=== PATIENT | male | born 1965 | race Caucasian/White ===

== ENCOUNTER 2020-01-20 18:36 | Emergency (ER) | payer OTHER, SELFPAY ==
--- NOTE | 2020-01-20 | US_ITS ---
EXAMINATION: US SCROTUM CLINICAL INFORMATION: Right-sided testicular pain. COMPARISON: None TECHNIQUE: A sonogram of the scrotum was performed assessing davidson-scale appearance and color Doppler flow. Spectral Doppler analysis of the arterial and venous flow were performed in the testes bilaterally. FINDINGS: RIGHT: Right testicle measures 4.7 x 2.8 x 3.2 cm, volume 22.1 mL. No focal testicular parenchymal lesions are visualized. Spectral Doppler analysis of the arterial and venous flow is normal in the right testis. Right epididymal head is normal in size. Small cyst in the head of the epididymis. Small right-sided hydrocele. There is no varicocele.. Right epididymal Doppler flow is normal. LEFT: Left testicle measures 4.7 x 2.5 x 2.9 cm, volume 17.4 mL. No focal testicular parenchymal lesions are visualized. Spectral Doppler analysis of the arterial and venous flow is normal in the left testis. Left epididymal head is normal in size. Small cyst in the head of the epididymis. No left hydrocele or varicocele is seen. Left epididymal Doppler flow is normal. IMPRESSION: 1. Normal right and left testicle and epididymis. Incidental small cysts in the head of both epididymis. 2. Small bilateral hydrocele.
[2020-01-20 18:50] VITALS: BP 157/65; PULSE 63; RESP 18; TEMP 37.1; BMI 50.9
--- NOTE | 2020-01-20 19:00 | ED.MALEGU ---
HPI - Male Genitourinary General Chief complaint: Urogenital-Male Stated complaint: RIGHT TESTICULAR PAIN Time Seen by Provider: 01/20/20 18:55 Source: patient Mode of arrival: ambulatory History of Present Illness HPI Narrative: patient states for the past couple days been having right testicular pain. Patient got worse and could not tolerate and came into the ER. Denies fevers or chills. Denies back pain. Denies penile discharge. Denies any trauma denies abdominal pain. patient states went to [facility] and was sent here for evaluation Complaint: testicle pain ( right sided) Duration: constant Location: right testicle Severity: moderate Severity scale (1-10): 4 Quality: aching Related Data Previous Rx's Medication Instructions Recorded tramadol [Ultram] 50 mg PO BID PRN #10 tab 01/20/20 Allergies Allergy/AdvReac Type Severity Reaction Status Date / Time clarithromycin [From Biaxin] AdvReac Itching Verified 01/20/20 19:00 Review of Systems Review of Systems: Constitutional : No Weight loss, No Fever, No Chills, No Night Sweats, No Fatigue, No Malaise ENT/Mouth : No Hearing loss, No Ear Pain, No Nasal Congestion, No Sinus Pain, No Hoarseness, No sore throat, No Rhinorrhea, No Swallowing Difficulty Eyes: No Eye Pain, No Swelling, No Redness, No Foreign Body, No Discharge, No Vision Changes Cardiovascular : No Chest Pain, No SOB, No Dyspnea on Exertion, No Orthopnea, No Edema, No Palpitations Respiratory : No Cough, No Sputum, No Wheezing, No Smoke Exposure, No Dyspnea Gastrointestinal : No Nausea, No Vomiting, No Diarrhea, No Constipation, No abdominal Pain, No Hematochezia, No Melena Genitourinary : no irregular bleeding, No Dysuria, No Urinary Frequency, No Hematuria, right testicular pain No Urinary Incontinence, No Urgency, No Flank Pain, No Urinary Flow Changes, No Hesitancy Musculoskeletal : No joint pain, No Myalgias, No Joint Swelling Skin : No Skin Lesions, No rash Neuro : No Weakness, No Numbness, No Paresthesias, No Loss of Consciousness, No Dizziness, No Headache Psych : No Anxiety/Panic, No Depression, No SI/HI/AH/VH, No Social Issues, Heme/Lymph: No Bruising, No Bleeding,No Lymphadenopathy Endocrine : No Polyuria, No Polydipsia, No Temperature Intolerance [facility] Past Medical History Medical History Diabetes HTN (hypertension) Sleep apnea Umbilical hernia Social History Social History (Updated 01/20/20 @ 19:02 by Cong Meyer DO) Household Members: Family Alcohol intake: never Smoked in Last 30 Days: No Use of substances other than those prescribed or required for medical reasons: No Advance Directives: No Advance Directives Information Provided: Yes Physical Exam Vital Signs and I&O and Narrative: Vital Signs and I&O: Vital Signs Temp 98 F 01/20/20 20:41 Pulse 65 01/20/20 20:41 Resp 15 01/20/20 20:41 BP 158/68 H 01/20/20 20:41 Intake & Output 01/20/20 01/20/20 01/21/20 06:59 18:59 06:59 Weight 156.489 kg Body Mass Index 50.9 vital signs reviewed Const: Other: Appearance: Alert. Oriented X3. No acute distress. Eyes: Pupils equal, round and reactive to light. ENT: Pharynx normal. Neck: Normal inspection. Neck supple. CVS: Normal heart rate and rhythm. Pulses normal. Respiratory: No respiratory distress. Breath sounds normal. Abdomen: Soft and nontender. genital: right testicular tenderness with mild swelling. no erythema. No abscess no lacerations. No penile discharge Skin: Skin warm and dry. Normal skin color. Normal skin turgor. Extremities: No lower extremity edema. No lower extremity edema. Neuro: Oriented X 3. No motor deficit. No sensory deficit. Course Reevaluation(s) Reevaluation #1: 54-year-old male with right scrotal pain. Ultrasound negative for epididymitis or orchitis. Negative urine. Does show a scrotal cyst. I discussed with patient reasons return to the emergency department pain medication and follow-up with urology. I doubt this patient has sepsis at this point MDM - Male Genitourinary MDM Narrative Medical decision making narrative: differential diagnosis includes epididymitis , orchitis Differential Diagnosis Differential diagnosis: Likely urinary tract infection Lab Data Result diagrams: 01/20/20 19:19 01/20/20 19:19 Labs: Lab Results 01/20/20 01/20/20 01/20/20 Range/Units 19:09 19:19 19:19 WBC 9.7 (4.8-10.8) X10*3/uL RBC 4.72 (4.60-5.80) X10*6/uL Hgb 14.8 (14.0-18.0) g/dl Hct 43.3 (42-52) % MCV 91.7 (80-98) fL MCH 31.4 (27.0-33.0) pg MCHC 34.2 (31.0-36.0) g/dl RDW 13.1 (11.0-16.0) % Plt Count 308 (160-400) X10*3/uL MPV 9.5 (9.4-12.4) fL Immature Gran % (Auto) 1.0 H (0.0-0.4) % Neut % (Auto) 63.7 (45-73) % Lymph % (Auto) 25.9 (20-40) % [place] % (Auto) 6.3 (2-11) % Eos % (Auto) 2.5 (0-4) % Baso % (Auto) 0.6 (0-2) % Neut # (Auto) 6.2 (2.0-8.3) X10*3/uL Lymph # (Auto) 2.5 (1.2-4.9) X10*3/uL [place] # (Auto) 0.6 (0.1-1.2) X10*3/uL Eos # (Auto) 0.2 (0.0-0.4) X10*3/uL Baso # (Auto) 0.1 (0.0-0.2) X10*3/uL Abs Immat Gran (auto) 0.10 H (0.00-0.03) X10*3/uL Absolute Nucleated RBC 0.000 (0.0-0.012) X10*3/uL Nucleated RBC % (auto) 0.0 (0.0-0.2) /100WBC Sodium 137 (135-145) mmol/L Potassium 3.9 (3.3-5.1) mmol/l Chloride 98 (96-108) mmol/L Carbon Dioxide 30 H (22-29) mmol/L Anion Gap 13 (12-20) BUN 12 (9-16) mg/dL Creatinine 0.83 (0.5-1.4) mg/dL Estim Creat Clear Calc 147.6 Estimated GFR > 60 Random Glucose 110 (60-115) mg/dL Calcium 9.3 (8.4-10.2) mg/dL Urine Color YELLOW Urine Appearance CLEAR Urine pH 5.5 (5.0-8.0) Ur Specific [place] 1.020 (1.005-1.025) Urine Protein NEG (NEG-TRACE) MG/DL Urine Glucose (UA) NEG (NEG) MG/DL Urine Ketones NEG (NEG) MG/DL Urine Blood NEG (NEG) Urine Nitrite NEG (NEG) Ur Leukocyte Esterase NEG (NEG) Discharge Plan Discharge Clinical Impression: Cyst of scrotum Patient Disposition: Home, Self-Care Instructions: Cyst (ED), Scrotal Pain (ED) Additional Instructions: Thank you for visiting the emergency department today. If your symptoms worsen or do not resolve completely please return to the emergency department immediately or call 911. if he have any questions please call your primary care physician Prescriptions: New tramadol [Ultram] 50 mg tablet 50 mg PO BID PRN (Reason: pain) Qty: 10 RF: 0 Referrals: Han Ayers MD [Physician] - 2 days Interventions: ED Discharge Assessment Last Done: 01/20/20 22:59 Discharge Date/Time: 01/20/20 22:59
[2020-01-20 19:20] LABS: Glucose Urine UA NEG (NEG); Leukocyte Esterase Urine NEG (NEG); Nitrite Urine NEG (NEG); PH 5.5 (5.0-8.0); Urine Blood NEG (NEG); Urine Ketones NEG (NEG); Urine Protein NEG (NEG-TRACE)
[2020-01-20 19:23] LABS: Appearance Urine CLEAR; Color Urine YELLOW
--- NOTE | 2020-01-20 19:25 | PC.NURSE ---
PT UPRIGHT IN BED, RR EVEN UNLABORED, SKIN WPD, AOX3. PT C/O R TESTICULAR PAIN WHICH STARTED ~2 WEEKS AGO BUT GOT SIGNIFICANTLY WORSE THIS AM WAKING PT FROM SLEEP. PT DENIES INJURY. NO APPRECIABLE REDNESS/SWELLING UPON VISUALIZATION. PT DENIES URINARY SX. LABS SENT, PT AWAITING RESULTS AND U/S.
[2020-01-20 19:27] LABS: MANUAL DIFF FLAG NO
[2020-01-20 19:39] LABS: Basophils Absolute Auto 0.1 X10*3/uL (0.0-0.2); Basophils Percent Auto 0.6 % (0-2); Eosinophils Absolute Auto 0.2 X10*3/uL (0.0-0.4); Eosinophils Percent Auto 2.5 % (0-4); Hematocrit 43.3 % (42-52); Hemoglobin 14.8 g/dl (14.0-18.0); Lymphocytes Absolute Auto 2.5 X10*3/uL (1.2-4.9); Lymphocytes Percent Auto 25.9 % (20-40); Mean Corpuscular HGB Conc 34.2 g/dl (31.0-36.0); Mean Corpuscular Hemoglobin 31.4 pg (27.0-33.0); Mean Corpuscular Volume 91.7 fL (80-98); Mean Platelet Volume 9.5 fL (9.4-12.4); Monocytes Absolute Auto 0.6 X10*3/uL (0.1-1.2); Monocytes Percent Auto 6.3 % (2-11); Neutrophils Absolute Auto 6.2 X10*3/uL (2.0-8.3); Neutrophils Percent Auto 63.7 % (45-73); Platelet Count 308 X10*3/uL (160-400); Red Blood Count 4.72 X10*6/uL (4.60-5.80); Red Cell Distribution Width 13.1 % (11.0-16.0); White Blood Count 9.7 X10*3/uL (4.8-10.8)
[2020-01-20 19:50] LABS: Anion Gap 13 (12-20); Blood Urea Nitrogen 12 mg/dL (9-16); Calcium 9.3 mg/dL (8.4-10.2); Carbon Dioxide 30 mmol/L (22-29); Chloride 98 mmol/L (96-108); Creatinine Clr Calc Pharmacy 147.6; Estimated Glomerular Filt Rate > 60; Glucose Random 110 mg/dL (60-115); Potassium 3.9 mmol/l (3.3-5.1); Sodium 137 mmol/L (135-145)
[2020-01-20 20:41] VITALS: BP 158/68; PULSE 65; RESP 15; TEMP 36.6
--- NOTE | 2020-01-20 20:43 | PC.NURSE ---
PT BACK FROM U/S, OFFERS NO NEW COMPLAINTS, AWAITING U/S RESULTS.
== END 2020-01-20 22:59 | disposition home or self-care (01) ==
PROVIDERS: Emergency Provider Emergency Medicine
DX: L72.9 Follicular cyst of the skin and subcutaneous tissue, unspecified (principal); N50.82 Scrotal pain; E11.9 Type 2 diabetes mellitus without complications; I10 Essential (primary) hypertension
CPT/HCPCS: 36415; 76870; 80048; 81003; 85025; 96372; 99284

== ENCOUNTER 2020-12-31 17:40 | Emergency (ER) | payer OTHER, SELFPAY ==
[2020-12-31 18:36] VITALS: BP 171/85; PULSE 74; RESP 16; TEMP 37; O2SAT 99; BMI 50.2
--- NOTE | 2020-12-31 18:40 | ED.DENTAL ---
HPI - Dental/Oral General Chief complaint: Dental/Oral Stated complaint: Dental pain Time Seen by Provider: 12/31/20 18:31 Source: patient and EMS Mode of arrival: EMS Limitations: no limitations History of Present Illness HPI Narrative: 55 y/o male presenting to the ER via EMS with dental pain. He initially was a walk in the ER waiting room but his pain was so severe he walked out of the ER and called an ambulance to get to be seen quicker. He reports he has not seen a dentist in 20+ years and has several broken and cracked teeth. This morning his pain worsened and he has had no relief with Tylenol. He reports sensation of right upper facial swelling and pain with chewing as well. No fevers. MD Complaint: tooth pain Location: Tooth # (1 & 3) Onset (ago): day(s) Duration: constant Severity: severe Severity scale (1-10): >10 Relieving factors: nothing Exacerbating factors: chewing Context: history of dental caries and poor dental care Associated symptoms: gum swelling Treatment prior to arrival: oral analgesic Related Data Previous Rx's Medication Instructions Recorded tramadol 50 mg tablet (Ultram) 50 mg PO BID PRN #10 tab 01/20/20 ibuprofen 800 mg tablet 800 mg PO Q8H PRN #20 tab 12/31/20 penicillin V potassium 500 mg 500 mg PO TID 7 Days #21 tab 12/31/20 tablet tramadol 50 mg tablet 50 mg PO Q8H PRN #6 tab 12/31/20 Allergies Allergy/AdvReac Type Severity Reaction Status Date / Time clarithromycin [From Biaxin] AdvReac Itching Verified 01/20/20 19:00 Review of Systems Constitutional: Constitutional: Denies chills, Denies fever(s) and Reports headache(s) Eyes: Eyes: Reports no additional eye complaints ENT: Reports Normal hearing present, Reports dental pain, Denies dysphagia, Reports otalgia, Reports facial pain, Reports headache(s), Denies lip swelling, Reports mouth pain, Denies neck pain, Denies sore throat, Denies throat swelling and Denies tongue swelling Cardiovascular: Cardiovascular: Denies chest pain Gastrointestinal: Gastrointestinal: Denies dysphagia and Denies vomiting Musculoskeletal: Musculoskeletal: Denies neck pain Neurologic: Reports Normal hearing present and Reports headache(s) Allergic/Immunologic: Allergic/Immunologic: Denies lip swelling, Denies throat swelling and Denies tongue swelling [facility] Past Medical History Medical History Diabetes HTN (hypertension) Sleep apnea Umbilical hernia Social History Social History (Updated 01/20/20 @ 19:02 by Cong Meyer DO) Household Members: Family Alcohol intake: never Advance Directives: No Advance Directives Information Provided: No Physical Exam Vital Signs: Vital Signs: Last Vital Signs Temp 98.6 F 12/31/20 18:36 Pulse 74 12/31/20 18:36 Resp 16 12/31/20 18:36 BP 171/85 H 12/31/20 18:36 Pulse Ox 99 12/31/20 18:36 Body Mass Index 50.2 Const: General: cooperative, healthy appearing and comfortable Nutritional Appearance: obese centrally obese Orientation/consciousness: patient oriented x3 Limitations: no limitations HENMT: Head: Yes normal to inspection, Yes normocephalic and Yes atraumatic Ears: hearing grossly normal bilaterally General nose exam: Normal external nose present and Normal nares present Face and sinus: Yes face symmetric Mouth: Normal oral and palatal mucosa present, lip normal, tongue normal and moist mucous membranes Teeth and gingiva: abnormal tooth and associated gingiva upper right third molar tender, with associated gingival edema, dentin fractured and pulp exposed; Negative for without associated gingival fluctuance and gingiva abnormal edematous and tender Throat: Yes posterior oropharynx normal, Yes tonsils normal and Yes uvula midline Eyes: General: appearance normal, both eyes and all related structures Neck: Neck: Yes normal visual inspection, Yes full ROM, Yes no lymphadenopathy and No anterior neck swelling Chest: Chest palpation & inspection: normal inspection of the chest Resp: Effort & Inspection: normal respiratory effort and able to speak in complete sentences Auscultation: clear to auscultation bilaterally Skin: General skin exam: no rashes or lesions noted Neuro: General: patient oriented x3 Cranial nerves: Yes Normal hearing present Extrem: General: Yes normal to inspection Psych: Mental Status: mental status grossly normal Speech and movement: Normal speech and movement present Course Course Course Narrative: 55 yo male presenting with dental pain that started today. He has multiple broken teeth, upper right molar with exposed pulp and tender gums, no fluctuance or palpable abscess. He has an appointment with [facility] on Tuesday. Will start on Abx, NSAID and short course of pain meds. Stable for d/c home. Critical Care Time Critical Care Time Critical Care Time: No Discharge Plan Discharge Clinical Impression: Toothache Patient Disposition: Home, Self-Care Instructions: Toothache (ED) Additional Instructions: Take all of the prescribed medications as directed. Recommend adding Tylenol 975mg every 6 hours around the clock and over the counter Orajel to help with pain Follow up with your Dentist as scheduled Prescriptions: New penicillin V potassium 500 mg tablet 500 mg PO TID 7 Days Qty: 21 RF: 0 ibuprofen 800 mg tablet 800 mg PO Q8H PRN (Reason: pain) Qty: 20 RF: 0 tramadol 50 mg tablet 50 mg PO Q8H PRN (Reason: severe pain (scale score 7-10)) Qty: 6 RF: 0 No Action tramadol [Ultram] 50 mg tablet 50 mg PO BID PRN (Reason: pain) Qty: 10 RF: 0 Interventions: ED Discharge Assessment Last Done: 12/31/20 19:19 Discharge Date/Time: 12/31/20 19:20
== END 2020-12-31 19:20 | disposition home or self-care (01) ==
PROVIDERS: Emergency Provider Emergency Medicine Emergency Medical Services; PCP Internal Medicine
DX: K08.89 Other specified disorders of teeth and supporting structures (principal)
CPT/HCPCS: 99283

== ENCOUNTER 2021-03-23 15:53 | Emergency (ER) | payer OTHER, SELFPAY ==
--- NOTE | ~2021-03-23 | CT_ITS ---
EXAMINATION: CT ABDOMEN AND PELVIS WITH CONTRAST CLINICAL INFORMATION: Reason for Exam AP, weight loss COMPARISON: None. TECHNIQUE: Multidetector volumetric imaging was performed from the superior aspect of the liver through the pubic symphysis following administration of 100 mL Omnipaque 300 intravenous contrast. Sagittal and coronal reformatted images were obtained on the technologist workstation.. This CT examination was performed using dose optimization techniques as appropriate, variously including the following: *Automated exposure control *Adjustment of mA and/or kV according to patient size (this includes techniques or standardized protocols for targeted exams where dose is matched to indication/reason for exam; i.e. extremities or head) *Use of iterative reconstruction technique DLP: 1257 mGy-cm FINDINGS: LUNG BASES: Mild dependent airspace changes likely representing basilar atelectasis. LIVER, GALLBLADDER, AND BILIARY TREE: There is diffuse fatty infiltration of the liver but no focal hepatic lesion nor biliary ductal dilatation. The gallbladder is unremarkable with no evidence of radiopaque gallstones, gallbladder wall thickening, or obvious pericholecystic inflammatory changes. PANCREAS: Unremarkable. SPLEEN: Unremarkable. ADRENAL GLANDS: Unremarkable. KIDNEYS AND URETERS: Low-attenuation renal cortical cysts bilaterally. Otherwise the kidneys are normal in size, shape, and attenuation. No hydronephrosis, hydroureter, or calculi seen. No perinephric stranding. BLADDER: Unremarkable. GASTROINTESTINAL TRACT: Scattered colonic diverticulosis but no colonic wall thickening or pericolonic inflammatory change to suggest diverticulitis. Normal-appearing appendix in the right lower quadrant. This lies small bowel unremarkable. ABDOMINAL WALL: No significant hernia is appreciated. LYMPHOVASCULAR STRUCTURES: Mild vascular calcification within the aorta iliac system. No bulky adenopathy PELVIC VISCERA: Unremarkable. OSSEOUS STRUCTURES: Degenerative changes in the hips and spine but no acute bony abnormality CT/CT abdomen pelvis w con IMPRESSION: Chronic appearing changes as described above. I do not appreciate any acute intra-abdominal process
[2021-03-23 16:22] VITALS: BP 155/74; PULSE 76; RESP 18; TEMP 36.2; O2SAT 95; BMI 48.7
[2021-03-23 16:57] LABS: MANUAL DIFF FLAG NO
[2021-03-23 16:59] LABS: Basophils Absolute Auto 0.1 X10*3/uL (0.0-0.2); Basophils Percent Auto 0.5 % (0-2); Eosinophils Absolute Auto 0.2 X10*3/uL (0.0-0.4); Eosinophils Percent Auto 1.9 % (0-4); Hematocrit 44.2 % (42.0-52.0); Hemoglobin 14.8 g/dl (14.0-18.0); Imm Gran Abs Auto 0.08 X10*3/uL (0.00-0.03); Imm Gran Pct Auto 0.7 % (0.0-0.4); Lymphocytes Absolute Auto 2.6 X10*3/uL (1.2-4.9); Lymphocytes Percent Auto 23.5 % (20-40); Mean Corpuscular HGB Conc 33.5 g/dl (31.0-36.0); Mean Corpuscular Hemoglobin 30.8 pg (27.0-33.0); Mean Corpuscular Volume 91.9 fL (80.0-98.0); Mean Platelet Volume 9.4 fL (9.4-12.4); Monocytes Absolute Auto 0.7 X10*3/uL (0.1-1.2); Monocytes Percent Auto 6.4 % (2-11); Neutrophils Absolute Auto 7.4 x10*3/uL (2.0-8.3); Platelet Count 278 X10*3/uL (160-400); Red Blood Count 4.81 X10*6/uL (4.60-5.80); Red Cell Distribution Width 13.2 % (11.0-16.0)
[2021-03-23 17:00] LABS: Appearance Urine CLEAR; Color Urine YELLOW; Glucose Urine UA NEG (NEG); Leukocyte Esterase Urine NEG (NEG); Nitrite Urine NEG (NEG); Specific Gravity - Urine 1.015 (1.005-1.025); Urine Blood NEG (NEG); Urine Ketones NEG (NEG); Urine Protein NEG (NEG-TRACE)
[2021-03-23 17:15] LABS: Alanine Aminotransferase 45 U/L (0-40); Albumin Level 4.1 g/dL (3.5-5.0); Alkaline Phosphatase 97 U/L (39-117); Anion Gap 13 (12-20); Aspartate Amino Transferase 29 U/L (5-37); Bilirubin Total 0.7 mg/dL (0.0-1.0); Blood Urea Nitrogen 12 mg/dL (9-16); Calcium 9.5 mg/dL (8.4-10.2); Carbon Dioxide 32 mmol/L (22-29); Chloride 97 mmol/L (96-108); Creatinine Clr Calc Pharmacy 146.5; Estimated Glomerular Filt Rate > 60; Glucose Random 118 mg/dL (60-115); Potassium 3.7 mmol/L (3.3-5.1); Sodium 138 mmol/L (135-145); Total Protein 7.1 g/dL (6.5-8.0)
--- NOTE | 2021-03-23 21:45 | ED_ITS ---
HPI - Abdominal Pain General Chief Complaint: Abdominal Pain Stated Complaint: Right sided abdomen pain Time Seen by Provider: 03/23/21 21:36 Source: patient Mode of arrival: ambulatory Limitations: no limitations History of Present Illness HPI narrative: 55-year-old male with a history of diabetes, hypertension, sleep apnea here with complaints of right-sided abdominal pain intermittent over the last few weeks. Pain is sharp and stabbing at times. He has some associated nausea with no vomiting or diarrhea. Last BM was yesterday and normal. No urinary symptoms, fevers or chills. Related Data Previous Rx's Medication Instructions Recorded tramadol 50 mg tablet (Ultram) 50 mg PO BID PRN #10 tab 01/20/20 ibuprofen 800 mg tablet 800 mg PO Q8H PRN #20 tab 12/31/20 penicillin V potassium 500 mg 500 mg PO TID 7 Days #21 tab 12/31/20 tablet tramadol 50 mg tablet 50 mg PO Q8H PRN #6 tab 12/31/20 dicyclomine 10 mg capsule 10 mg PO TID #15 cap 03/23/21 Allergies Allergy/AdvReac Type Severity Reaction Status Date / Time clarithromycin [From Biaxin] AdvReac Itching Verified 01/20/20 19:00 Review of Systems Review of Systems Yes all other systems are reviewed and are negative Constitutional: Reports no additional constitutional complaints, Denies body ache(s), Denies chills, Denies fever(s), Denies headache(s) and Denies weakness Eyes: Reports no additional eye complaints and Denies change in vision Reports system reviewed and no additional complaints, except as documented, Denies dizziness, Denies headache(s), Denies nasal congestion, Denies nasal discharge and Denies neck pain Cardiovascular: Reports no additional cardiovascular complaints, Denies chest pain, Denies leg edema and Denies dyspnea Respiratory: Reports no additional respiratory complaints, Denies cough and Denies dyspnea Gastrointestinal: Reports no additional gastrointestinal complaints, Reports abdominal pain, Denies diarrhea, Reports nausea and Denies vomiting Genitourinary: Denies urinary incontinence Musculoskeletal: Reports no additional musculoskeletal complaints, Denies back pain, Denies arthralgias, Denies joint swelling, Denies neck pain, Denies numbness and Denies tingling Skin/Breast: Reports system reviewed and no additional complaints, except as docu and Denies rash Reports system reviewed and no additional complaints, except as documented, Den ies Abnormal speech present, Denies dizziness, Denies headache(s), Denies numbness, Denies tingling and Denies weakness Physical Exam Vital Signs: Vital Signs: Last Vital Signs Temp 97.1 F 03/23/21 16:22 Pulse 76 03/23/21 16:22 Resp 18 03/23/21 16:22 BP 155/74 H 03/23/21 16:22 Pulse Ox 95 03/23/21 16:22 BMI result Body Mass Index 48.7 Const: General: cooperative, healthy appearing, comfortable and no acute distress Orientation/consciousness: patient oriented x3 Limitations: no limitations HENMT: Head: Yes normal to inspection Ears: hearing grossly normal b ilaterally General nose exam: Normal external nose present Face and sinus: Yes normal facial exam Mouth: Normal oral and palatal mucosa present Throat: Yes posterior oropharynx normal Eyes: General: appearance normal, both eyes and all related structures Pupils: Equal, round and reactive pupils present Neck: Neck: Yes normal visual inspection Chest: Chest palpation & inspection: normal inspection of the chest Resp: Effort & Inspection: normal respiratory effort Auscultation: clear to auscultation bilaterally Cardio: Rate: regular rate Rhythm: regular rhythm Peripheral pulses: Peripheral pulses 2+ throughout GI: Inspection: Yes normal to inspection Palpation (GI): Soft to palpation, Tenderness to palpation present (GI) (Right lower and right side abdomen pain with rebound) and no guarding Auscultation: normal bowel sounds Back/Spine/Pelvis: Thoracic/Lumbar Spine: thoracic and lumbar spine normal to inspection Skin: General skin exam: no rashes or lesions noted Neuro: General: patient oriented x3, no focal motor deficits and normal sensation to monofilament Cranial nerves: Yes Equal, round and reactive pupils present Cognition (Neuro): normal cognition Speech: No Abnormal speech present Gait exam (Neuro): Normal gait present Motor exam (neuro): 5/5 motor strength present throughout Extrem: General: Yes normal to inspection, Yes no pedal edema and Yes no calf tenderness Course Course Course Narrative: 55-year-old male here with intermittent right-sided abdominal pain for the last few weeks with associated nausea. On exam the patient has tenderness in the right side of the abdomen with some rebound. Will check labs, UA, CT abdomen and pelvis 2300-CT abdomen pelvis shows no acute finding. Labs and urine are negative. Discussed this with the patient. Recommend he follow-up outpatient with Gastroenterology for colonoscopy and endoscopy. Patient tells me his mom is a history of gastric cancer in his status a history of colon cancer and so I discussed with him it is important to follow-up with these providers to rule this out. Reviewed worrisome signs and symptoms and when to return to the emergency department. Comfortable discharge home. MDM - Abdominal Pain Differential Diagnosis Differential diagnosis: Likely acute appendicitis and calculus of kidney Medical Records Attestation: I reviewed the patient's medical records. Lab Data Attestation: I reviewed the patient's lab results. Result diagrams: 03/23/21 16:52 03/23/21 16:51 Labs: Lab Results 03/23/21 03/23/21 03/23/21 Range/Units 16:51 16:51 16:52 WBC 11.0 H (4.8-10.8) X10*3/uL RBC 4.81 (4.60-5.80) X10*6/uL Hgb 14.8 (14.0-18.0) g/dl Hct 44.2 (42.0-52.0) % MCV 91.9 (80.0-98.0) fL MCH 30.8 (27.0-33.0) pg MCHC 33.5 (31.0-36.0) g/dl RDW 13.2 (11.0-16.0) % Plt Count 278 (160-400) X10*3/uL MPV 9.4 (9.4-12.4) fL Immature Gran % (Auto) 0.7 H (0.0-0.4) % Neut % (Auto) 67.0 (45-73) % Lymph % (Auto) 23.5 (20-40) % [place] % (Auto) 6.4 (2-11) % Eos % (Auto) 1.9 (0-4) % Baso % (Auto) 0.5 (0-2) % Lymph # (Auto) 2.6 (1.2-4.9) X10*3/uL [place] # (Auto) 0.7 (0.1-1.2) X10*3/uL Eos # (Auto) 0.2 (0.0-0.4) X10*3/uL Baso # (Auto) 0.1 (0.0-0.2) X10*3/uL Abs Immat Gran (auto) 0.08 H (0.00-0.03) X10*3/uL Absolute Neuts (auto) 7.4 (2.0-8.3) x10*3/uL Absolute Nucleated RBC 0.000 (0.0-0.012) X10*3/uL Nucleated RBC % (auto) 0.0 (0.0-0.2) /100WBC Sodium 138 (135-145) mmol/L Potassium 3.7 (3.3-5.1) mmol/L Chloride 97 (96-108) mmol/L Carbon Dioxide 32 H (22-29) mmol/L Anion Gap 13 (12-20) BUN 12 (9-16) mg/dL Creatinine 0.83 (0.5-1.4) mg/dL Estim Creat Clear Calc 146.5 Estimated GFR > 60 Random Glucose 118 H (60-115) mg/dL Calcium 9.5 (8.4-10.2) mg/dL Total Bilirubin 0.7 (0.0-1.0) mg/dL AST 29 (5-37) U/L ALT 45 H (0-40) U/L Alkaline Phosphatase 97 (39-117) U/L Total Protein 7.1 (6.5-8.0) g/dL Albumin 4.1 (3.5-5.0) g/dL Lipase 35 (8-78) U/L Urine Color YELLOW Urine Appearance CLEAR Urine pH 6.0 (5.0-8.0) Ur Specific [place] 1.015 (1.005-1.025) Urine Protein NEG (NEG-TRACE) MG/DL Urine Glucose (UA) NEG (NEG) MG/DL Urine Ketones NEG (NEG) MG/DL Urine Blood NEG (NEG) Urine Nitrite NEG (NEG) Ur Leukocyte Esterase NEG (NEG) Imaging Data CT scan - abdomen: Attestation: I personally reviewed and interpreted this imaging study as follows: Radiologist's impression: FINDINGS: LUNG BASES: Mild dependent airspace changes likely representing basilar atelectasis.? LIVER, GALLBLADDER, AND BILIARY TREE: There is diffuse fatty infiltration of the liver but no focal hepatic lesion nor biliary ductal dilatation. The gallbladder is unremarkable with no evidence of radiopaque gallstones, gallbladder wall thickening, or obvious pericholecystic inflammatory changes.? PANCREAS: Unremarkable.? SPLEEN: Unremarkable.? ADRENAL GLANDS: Unremarkable.? KIDNEYS AND URETERS: Low-attenuation renal cortical cysts bilaterally. Otherwise the kidneys are normal in size, shape, and attenuation. No hydronephrosis, hydroureter, or calculi seen. No perinephric stranding. ? BLADDER: Unremarkable.? GASTROINTESTINAL TRACT: Scattered colonic diverticulosis but no colonic wall thickening or pericolonic inflammatory change to suggest diverticulitis. Normal-appearing appendix in the right lower quadrant. This lies small bowel unremarkable.? ABDOMINAL WALL: No significant hernia is appreciated.? LYMPHOVASCULAR STRUCTURES: Mild vascular calcification within the aorta iliac system. No bulky adenopathy? PELVIC VISCERA: Unremarkable. OSSEOUS STRUCTURES: Degenerative changes in the hips and spine but no acute bony abnormality? CT/CT abdomen pelvis w con IMPRESSION: Chronic appearing changes as described above. I do not appreciate any acute intra-abdominal process Discharge Plan Discharge Clinical Impression: Abdominal pain Patient Disposition: Home, Self-Care Instructions: Abdominal Pain (ED) Additional Instructions: Follow-up with GI for a colonoscopy and endoscopy as discussed Prescriptions: New dicyclomine 10 mg capsule 10 mg PO TID Qty: 15 RF: 0 No Action tramadol [Ultram] 50 mg tablet 50 mg PO BID PRN (Reason: pain) Qty: 10 RF: 0 penicillin V potassium 500 mg tablet 500 mg PO TID 7 Days Qty: 21 RF: 0 ibuprofen 800 mg tablet 800 mg PO Q8H PRN (Reason: pain) Qty: 20 RF: 0 tramadol 50 mg tablet 50 mg PO Q8H PRN (Reason: severe pain (scale score 7-10)) Qty: 6 RF: 0 Referrals: Tyrell Gomez [Physician] - 2 days [facility] Past Medical History Attestation statement: The following information was validated with the patient. Source: old records reviewed and nursing notes reviewed Medical History Diabetes HTN (hypertension) Sleep apnea Umbilical hernia Social History Social History Household Members: Family Alcohol intake: never Advance Directives: No Advance Directives Information Provided: No
[2021-03-23 22:15] LABS: Lipase 35 U/L (8-78)
[2021-03-23] MEDS: iohexoL 350 MG/ML 100 ML INFUS..BTL IV (22:30)
== END 2021-03-23 23:23 | disposition home or self-care (01) ==
PROVIDERS: Nurse Practitioner Family; Emergency Provider Emergency Medicine Emergency Medical Services; PCP Internal Medicine
DX: R10.9 Unspecified abdominal pain (principal); E11.9 Type 2 diabetes mellitus without complications; I10 Essential (primary) hypertension
CPT/HCPCS: 36415; 74177; 80053; 81003; 83690; 85025; 99283; 99284; Q9967

== ENCOUNTER 2022-01-07 16:00 | Emergency (ER) | payer OTHER, SELFPAY ==
[2022-01-07 17:10] VITALS: BP 185/64; PULSE 65; RESP 18; TEMP 36.2; O2SAT 95; BMI 48.0
[2022-01-07 17:33] LABS: MANUAL DIFF FLAG NO
[2022-01-07 17:35] LABS: Basophils Absolute Auto 0.1 X10*3/uL (0.0-0.2); Basophils Percent Auto 0.5 % (0-2); Eosinophils Absolute Auto 0.3 X10*3/uL (0.0-0.4); Eosinophils Percent Auto 2.6 % (0-4); Hematocrit 44.7 % (42.0-52.0); Hemoglobin 14.7 g/dl (14.0-18.0); Imm Gran Abs Auto 0.08 X10*3/uL (0.00-0.03); Imm Gran Pct Auto 0.8 % (0.0-0.4); Lymphocytes Absolute Auto 2.8 X10*3/uL (1.2-4.9); Lymphocytes Percent Auto 26.5 % (20-40); Mean Corpuscular HGB Conc 32.9 g/dl (31.0-36.0); Mean Corpuscular Hemoglobin 30.2 pg (27.0-33.0); Mean Corpuscular Volume 91.8 fL (80.0-98.0); Mean Platelet Volume 9.6 fL (9.4-12.4); Monocytes Absolute Auto 0.8 X10*3/uL (0.1-1.2); Monocytes Percent Auto 7.1 % (2-11); Neutrophils Absolute Auto 6.7 x10*3/uL (2.0-8.3); Neutrophils Percent Auto 62.5 % (45-73); Platelet Count 270 X10*3/uL (160-400); Red Blood Count 4.87 X10*6/uL (4.60-5.80); Red Cell Distribution Width 13.4 % (11.0-16.0); White Blood Count 10.7 X10*3/uL (4.8-10.8)
[2022-01-07 17:36] LABS: Appearance Urine Clear; Color Urine Yellow; Glucose Urine UA 100 mg/dL (Negative); Leukocyte Esterase Urine Negative (Negative); Nitrite Urine Negative (Negative); Specific Gravity - Urine 1.015 (1.005-1.025); Urine Blood Negative (Negative); Urine Ketones Negative (Negative); Urine Protein Negative (Neg-Trace)
[2022-01-07 17:50] LABS: Alanine Aminotransferase 42 U/L (0-40); Albumin Level 4.1 g/dL (3.5-5.0); Alkaline Phosphatase 131 U/L (39-117); Anion Gap 14 (12-20); Aspartate Amino Transferase 25 U/L (5-37); Bilirubin Direct 0.2 mg/dL (0.0-0.5); Bilirubin Total 0.4 mg/dL (0.0-1.0); Blood Urea Nitrogen 14 mg/dL (9-16); Calcium 9.4 mg/dL (8.4-10.2); Carbon Dioxide 34 mmol/L (22-29); Chloride 95 mmol/L (96-108); Estimated Glomerular Filt Rate > 60; Glucose Random 187 mg/dL (60-115); Lipase 119 U/L (8-78); Potassium 3.8 mmol/L (3.3-5.1); Sodium 139 mmol/L (135-145); Total Protein 7.2 g/dL (6.5-8.0)
[2022-01-07 17:57] LABS: Troponin-I High Sensitivity < 3.5 ng/L (<3.5-35.0)
== END 2022-01-07 21:46 | disposition left against medical advice (07) ==
PROVIDERS: Emergency Provider Emergency Medicine; PCP Internal Medicine
DX: M54.50 Low back pain, unspecified (principal); Z79.899 Other long term (current) drug therapy
CPT/HCPCS: 36415; 80053; 81003; 82248; 83690; 84484; 85025; 99282; 99283

== ENCOUNTER 2023-03-07 11:20 | Outpatient (AMB) | payer OTHER, SELFPAY ==
[2023-03-07 11:30] VITALS: BP 132/72; PULSE 69; TEMP 36.6; O2SAT 96; BMI 33.3
--- NOTE | 2023-03-07 11:30 | AM.OFFWIN_ITS ---
<Statement entered by Lazara Santamaria, LEIGH ANN - 03/07/23 15:09> This patient was seen by Dr. Draper. I did not see this patient. 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 Reporting symptoms of sinus congestion, sore throat and difficulty swallowing. Low-grade fever. No family member is sick. No recent travel. Patient reports symptoms of malaise and fatigue. [facility] Medical History Diabetes HTN (hypertension) Sleep apnea Umbilical hernia Social History Household Members: Family Alcohol intake: never Patient Tobacco Use Status: Never used Tobacco Physical Exam Vital Signs: Last Vital Signs Temp 97.9 F 03/07/23 11:30 Pulse 69 03/07/23 11:30 BP 132/72 03/07/23 11:30 Pulse Ox 96 03/07/23 11:30 Oxygen Delivery Method Room Air 03/07/23 11:30 BMI result Body Mass Index 33.3 Const General: cooperative and healthy appearing Nutritional Appearance: well nourished Orientation/consciousness: patient oriented x3 Limitations: no limitations HEENT Head: Yes normal to inspection Eyes General: appearance normal, both eyes and all related structures Neck Neck: Yes normal visual inspection Chest Chest palpation & inspection: normal palpation of entire chest wall Resp Effort & Inspection: normal respiratory effort Neuro General: patient oriented x3 Assessment & Plan Assessment & Plan (1) Upper respiratory tract infection: Code(s): J06.9 - Acute upper respiratory infection, unspecified Plan: Antibiotics ordered. Increase fluid intake. Tylenol for aches and pains. If symptoms worsen, follow-up here for a recheck. Coding Level of Care Code Est Pt Level 3 (00102) Diagnoses Upper respiratory tract infection J06.9
== END 2023-03-07 12:06 | disposition home or self-care (01) ==
PROVIDERS: PCP Internal Medicine; Visit Provider Internal Medicine
DX: J06.9 Acute upper respiratory infection, unspecified (principal)
CPT/HCPCS: 99213